=== PATIENT | female | born 1970 | race African-American/Black ===

== ENCOUNTER 2016-05-14 22:25 | Emergency (ER) | payer BC ==
[~2016-05-14] VITALS: Ht 167.6 cm; Wt 60.8 kg
[2016-05-14] MEDS ORDERED: VIT D (22:39)
[2016-05-14] MEDS ORDERED: IBUPROFEN600 MG ORAL (22:59)
[2016-05-14] MEDS ORDERED: TdaP Vaccine 0.5ml Syr IM ONE (23:00)
[2016-05-14 23:48] VITALS: BP 124/74
[2016-05-14 23:57] VITALS: BP 124/74
--- NOTE | 2016-05-15 01:54 | Emergency Room Report ---
History of Present Illness General Chief Complaint: Laceration Source: Patient Present Illness HPI The patient is a 45-year-old female who presented after having increased hand pain. The patient was noted to have been preparing food when she cut herself with immersion green coffee blender. 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 She is right-hand dominant. The injury was to her left hand. Allergies: Coded Allergies: No Known Allergies (Unverified , 05/14/16) Patient History Past Medical History: see triage record Reviewed Nursing Documentation: PMH: Agreed, PSxH: Agreed Review of Systems All Other Systems: negative except mentioned in HPI Physical Exam Vital Signs Date Time Temp Pulse Resp B/P Pulse Ox O2 Delivery O2 Flow Rate FiO2 05/14/16 22:31 97.3 84 16 127/85 100 Room Air General Appearance: well appearing, no apparent distress, alert, GCS 15 Head: normocephalic, atraumatic ENT: hearing grossly normal, normal voice Neck: full range of motion, supple Respiratory: no respiratory distress, speaking full sentences Musculoskeletal: normal inspection, no calf tenderness Neurologic: normal inspection, alert, oriented x3, responsive, normal gait Psychiatric: mood/affect normal Skin: no rash, laceration - laceration superficial to distal phalanx Procedures Laceration/Wound Repair Laceration/Wound Repair : Consent: Verbal Wound Location: upper extremity Wound's Depth, Shape: superficial Wound Length (cm): 1 Wound Explored: clean Wound Debrided: minimal Wound Repaired With: Dermabond Layer Closure?: No Patient Tolerated: Well Complications: None Medical Decision Making Diagnostic Impression: Primary Impression: Laceration ER Course Patient presented for laceration. Differential diagnoses included foreign body , nerve injury, arterial injury among others. Patient's benign exam and does not appear to require any further imaging or laboratory testing at this time. The patient's wound was irrigated. The wound was closed with Dermabond. The patient was placed in an aluminum splint. The patient is advised to follow up with primary care doctor in 1-2 days. Patient is advised to return if any worsening condition or if any changes in status that are concerning. Last Vital Signs Date Time Temp Pulse Resp B/P Pulse Ox O2 Delivery O2 Flow Rate FiO2 05/14/16 23:57 97.3 72 16 124/74 97 Room Air Status: improved Disposition: HOME, SELF-CARE Condition: Stable Scripts Ibuprofen* (MOTRIN*) 600 Mg Tablet 600 MG ORAL Q8H Y for For Pain, #30 TAB 0 Refills Prov: Doug Flores 05/14/16 Referrals: NON PHYSICIAN (PCP) Patient Instructions: Laceration Care, Adult Doug Flores May 15, 2016 01:54
== END 2016-05-14 23:57 | disposition home or self-care (01) ==
LOC: EMR 22:57
DX: S61.219A Laceration without foreign body of unspecified finger without damage to nail, initial encounter (principal); W45.8XXA Other foreign body or object entering through skin, initial encounter; Y93.9 Activity, unspecified; Y92.9 Unspecified place or not applicable; Z23 Encounter for immunization
CPT/HCPCS: 90471; 90715